=== PATIENT | female | born 1990 | race African-American/Black ===

== ENCOUNTER 2018-12-13 17:28 | Emergency (ER) | payer OTHER ==
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
[2018-12-13 17:37] VITALS: BP 118/72; PULSE 104; TEMP 98.1; BMI 31.7
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
== END 2018-12-13 18:00 | disposition home or self-care (01) ==
LOC: JERFT 17:28
DX: S13.4XXA Sprain of ligaments of cervical spine, initial encounter (principal); V43.62XA Car passenger injured in collision with other type car in traffic accident, initial encounter; Y93.89 Activity, other specified; Y92.410 Unspecified street and highway as the place of occurrence of the external cause
CPT/HCPCS: 99281-25

== ENCOUNTER 2021-01-18 12:21 | Emergency (ER) | payer SELFPAY ==
[2021-01-18 12:27] VITALS: BP 115/78; PULSE 94; TEMP 98; BMI 27.3
[2021-01-18] MEDS ORDERED: KETOROLAC TROMETHAMINE 30 MG/1 ML VIAL IM ONE (14:40)
[2021-01-18] MEDS ORDERED: KETOROLAC TROMETHAMINE 30 MG/1 ML VIAL ONE (14:46)
[2021-01-18 16:40] LABS: HEMOGLOBIN 11.3 GM/dL (10.7-15.3); MCH 22.9 pg (25.7-33.7); MCHC 32.4 g/dl (32.0-36.0); MEAN CELL VOLUME 70.5 fl (80-96); MEAN PLT VOLUME 8.3 fl (7.5-11.1); PLATELET COUNT 441 10^3/uL (134-434); RBC 4.96 M/mm3 (3.60-5.2); RDW 16.8 % (11.6-15.6); WHITE BLOOD COUNT 14.8 K/mm3 (4.0-10.0)
[2021-01-18 17:06] LABS: ALBUMIN 3.9 g/dl (3.4-5.0); BILIRUBIN,TOTAL 0.3 mg/dL (0.2-1); BLOOD UREA NITROGEN 7.6 mg/dL (7-18); CALCIUM 8.9 mg/dL (8.5-10.1); CREATININE 0.7 mg/dL (0.55-1.3); TOT PROT 7.7 g/dl (6.4-8.2)
[2021-01-18 17:10] LABS: PH,URINE 5.5 (5.0-8.0); URINE APPEARANCE TURBID; URINE BILIRUBIN NEGATIVE (NEGATIVE); URINE COLOR YELLOW; URINE GLUCOSE (UA) NEGATIVE (NEGATIVE); URINE KETONE TRACE (NEGATIVE); URINE LEUK ESTERASE NEGATIVE (NEGATIVE); URINE NITRITE NEGATIVE (NEGATIVE); URINE PROTEIN NEGATIVE (NEGATIVE)
[2021-01-18 17:25] LABS: HCG,QUALITATIVE URINE Negative
[2021-01-18 17:39] LABS: ANISOCYTOSIS 3+; MACROCYTOSIS 0
== END 2021-01-18 20:36 | disposition home or self-care (01) ==
LOC: JER 12:21
PROC: 3E0233Z Introduction of Anti-inflammatory into Muscle, Percutaneous Approach (ICD-10-PCS; principal; 2021-01-18)
DX: R10.32 Left lower quadrant pain (principal)
CPT/HCPCS: 36415; 74177-TC; 76830-TC; 80053; 81003; 84703; 85027; 87086; 99285-25; Q9967

== ENCOUNTER 2021-02-02 17:30 | Observation (INO) | payer OTHER ==
[2021-02-02] MEDS ORDERED: DEXAMETHASONE SOD PHOSPHATE 10 MG/1 ML VIAL IM ONE (17:40)
[2021-02-02] MEDS ORDERED: DEXAMETHASONE SOD PHOSPHATE 10 MG/1 ML VIAL ONE (17:42)
[2021-02-02] MEDS ORDERED: DEXAMETHASONE SOD PHOSPHATE 10 MG/1 ML VIAL IVPUSH ONE (17:45)
[2021-02-02] MEDS: ALBUTEROL SO4 2.5/IPRATROPIUM 0.5 INH SOL 3 ML VIAL.NEB. NEB SCH ×4 (17:47→18:32)
[2021-02-02] MEDS ORDERED: LACTATED RINGERS SOLUTION 1000 ML INFUS.BAG IV ONE ×2 (18:06→18:48)
[2021-02-02] MEDS ORDERED: MAGNESIUM SULF 50% (8.12 MEQ/2 ML-1 GM VIAL) IVPB ONE (18:14)
[2021-02-02] MEDS ORDERED: MAGNESIUM SULFATE IN WATER 2 GM/50 ML IVPB IVPB ONE (18:16)
[2021-02-02] MEDS ORDERED: OSELTAMIVIR PHOSPHATE 75 MG CAPSULE PO ONE (19:36)
[2021-02-02 20:28] LABS: VENOUS O2 SATURATION 51.1 % (70-80); VENOUS PCO2 39.2 mmHg (38-52); VENOUS PH 7.399 (7.310-7.410)
[2021-02-02 20:35] LABS: BASO % 0.3 % (0-2.0); EOS % 0.6 % (0-4.5); HEMATOCRIT 33.6 % (32.4-45.2); HEMOGLOBIN 10.9 GM/dL (10.7-15.3); LYMPH % 8.9 % (8-40); MCH 22.6 pg (25.7-33.7); MCHC 32.4 g/dl (32.0-36.0); MEAN CELL VOLUME 69.6 fl (80-96); MEAN PLT VOLUME 7.8 fl (7.5-11.1); MONO % 2.3 % (3.8-10.2); NEUT % 87.9 % (42.8-82.8); PLATELET COUNT 465 10^3/uL (134-434); RBC 4.83 M/mm3 (3.60-5.2); RDW 16.5 % (11.6-15.6); WHITE BLOOD COUNT 8.8 K/mm3 (4.0-10.0)
[2021-02-02 20:47] LABS: INR 1.34 (0.83-1.09); PROTHROMBIN TIME (PATIENT) 15.7 SEC (9.7-13.0)
[2021-02-02 20:50] LABS: ACTIVATED PTT 29.1 SECONDS (25.2-36.5)
[2021-02-02 20:58] LABS: ALBUMIN 3.5 g/dl (3.4-5.0); BLOOD UREA NITROGEN 5.2 mg/dL (7-18); CALCIUM 8.4 mg/dL (8.5-10.1); MAGNESIUM 2.8 mg/dL (1.8-2.4)
[2021-02-02 21:01] LABS: CREATININE 0.8 mg/dL (0.55-1.3)
[2021-02-02 21:03] LABS: BILIRUBIN,TOTAL 0.4 mg/dL (0.2-1); TOT PROT 7.4 g/dl (6.4-8.2)
[2021-02-03] MEDS ORDERED: ALBUTEROL SO4 2.5/IPRATROPIUM 0.5 INH SOL 3 ML VIAL.NEB. NEB PRN (02:50)
[2021-02-03] MEDS ORDERED: FLU VACC QS2021-22(6MOS UP)/PF 60 MCG/0.5 ML SYRINGE IM ONE (03:00)
[2021-02-03 03:07] VITALS: BMI 33.5
[2021-02-03] MEDS ORDERED: PT OWN MED DRAWER 7, Y5N ONE ×3 (08:52→10:21)
[2021-02-03] MEDS: ENOXAPARIN NA (PORCINE) 40 MG/0.4 ML DISP.SYRIN SQ SCH (10:22)
[2021-02-03] MEDS: OSELTAMIVIR PHOSPHATE 75 MG CAPSULE PO SCH (10:22)
[2021-02-03] MEDS: predniSONE 20 MG TABLET (UD) PO SCH (10:22)
[2021-02-03] MEDS ORDERED: ALBUTEROL SO4 0.5 % INH SOLN 2.5 MG/0.5 ML VIAL.NEB. NEB PRN (14:11)
[2021-02-03] MEDS: ALBUTEROL SO4 2.5/IPRATROPIUM 0.5 INH SOL 3 ML VIAL.NEB. NEB SCH ×2 (17:45→20:00)
[2021-02-04] MEDS: ALBUTEROL SO4 2.5/IPRATROPIUM 0.5 INH SOL 3 ML VIAL.NEB. NEB SCH ×3 (08:32→15:01)
[2021-02-04 08:35] LABS: BASO % 0.6 % (0-2.0); EOS % 0.3 % (0-4.5); HEMATOCRIT 34.1 % (32.4-45.2); LYMPH % 28.7 % (8-40); MCH 22.6 pg (25.7-33.7); MCHC 32.3 g/dl (32.0-36.0); MEAN CELL VOLUME 70.1 fl (80-96); MONO % 7.5 % (3.8-10.2); NEUT % 62.9 % (42.8-82.8); PLATELET COUNT 516 10^3/uL (134-434); RBC 4.87 M/mm3 (3.60-5.2); RDW 16.6 % (11.6-15.6); WHITE BLOOD COUNT 6.3 K/mm3 (4.0-10.0)
[2021-02-04 09:08] LABS: CALCIUM 8.8 mg/dL (8.5-10.1)
[2021-02-04 09:09] LABS: ALBUMIN 3.5 g/dl (3.4-5.0); BLOOD UREA NITROGEN 8.6 mg/dL (7-18); MAGNESIUM 2.6 mg/dL (1.8-2.4)
[2021-02-04 09:12] LABS: CREATININE 0.7 mg/dL (0.55-1.3); PHOSPHOROUS 4.4 mg/dL (2.5-4.9)
[2021-02-04 09:14] LABS: BILIRUBIN,TOTAL 0.4 mg/dL (0.2-1); TOT PROT 7.4 g/dl (6.4-8.2)
[2021-02-04] MEDS: ENOXAPARIN NA (PORCINE) 40 MG/0.4 ML DISP.SYRIN SQ SCH ×2 (09:58→10:02)
[2021-02-04] MEDS: predniSONE 20 MG TABLET (UD) PO SCH (09:58)
[2021-02-04] MEDS: OSELTAMIVIR PHOSPHATE 75 MG CAPSULE PO SCH (09:59)
[2021-02-04 13:40] VITALS: BP 114/73; PULSE 94; TEMP 98.2
== END 2021-02-04 17:10 | disposition home or self-care (01) ==
LOC: JER 17:30 → JERBED 22:55 → INTOOBSV 22:55 → J4S 02-03 02:40
PROVIDERS: ADMIT Internal Medicine; ATTEND Internal Medicine
PROC: 3E0F7GC Introduction of Other Therapeutic Substance into Respiratory Tract, Via Natural or Artificial Opening (ICD-10-PCS; principal; 2021-02-02)
PROC: 3E0337Z Introduction of Electrolytic and Water Balance Substance into Peripheral Vein, Percutaneous Approach (ICD-10-PCS; 2021-02-02)
PROC: 3E033GC Introduction of Other Therapeutic Substance into Peripheral Vein, Percutaneous Approach (ICD-10-PCS; 2021-02-02)
DX: J09.X2 Influenza due to identified novel influenza A virus with other respiratory manifestations (principal); J45.41 Moderate persistent asthma with (acute) exacerbation; R00.0 Tachycardia, unspecified; R06.02 Shortness of breath; R09.3 Abnormal sputum; E66.8 Other obesity; Z68.33 Body mass index [BMI] 33.0-33.9, adult; R09.02 Hypoxemia
CPT/HCPCS: 36415; 71045-TC-FY; 71275-TC; 80053; 82803; 83540; 83550; 83735; 84100; 84439; 84443; 84703; 85025; 85610; 85730; 87804; 87807; 93005; 93010; 94640; 94761; 96374; 99285-25; C9803; G0378; J1100; Q9967; U0003; U0005